=== PATIENT | male | born 1965 | race Caucasian/White ===

== ENCOUNTER 2022-05-31 06:17 | Day surgery (SDC) | payer BC ==
[2022-05-30 14:14] VITALS: BMI 32.3
[2022-05-31] MEDS ORDERED: EPINEPHrine 1 MG/ML AMP ONE (06:40)
[2022-05-31] MEDS ORDERED: Lidocaine 1% (PF) 30 ML VIAL ONE (06:40)
[2022-05-31] MEDS ORDERED: Bacitracin Zinc Ointment 30 gm TUBE ONE (06:40)
[2022-05-31] MEDS ORDERED: fentaNYL PF 100 MCG/2 ML SYRINGE ONE (06:49)
[2022-05-31] MEDS ORDERED: ePHEDrine 50 MG/ML VIAL ONE (07:27)
[2022-05-31] MEDS ORDERED: Dexamethasone 20 MG/5 ML VIAL ONE (07:27)
[2022-05-31] MEDS ORDERED: Lidocaine 1% PF 5 ML VIAL ONE (07:27)
[2022-05-31] MEDS ORDERED: Rocuronium Bromide 10 MG/ML (10ML VIAL) ONE (07:27)
[2022-05-31] MEDS ORDERED: Ondansetron PF 4 MG/2 ML Vial ONE (07:27)
[2022-05-31] MEDS ORDERED: Esmolol 100 MG/10 ML VIAL ONE (07:27)
[2022-05-31] MEDS ORDERED: Glycopyrrolate 0.2 MG/ML 5 ML SYRINGE ONE (07:27)
[2022-05-31] MEDS ORDERED: PHENYLEPHRINE-NS 100 MCG/ML 10 ML SYRINGE ONE (07:27)
[2022-05-31] MEDS ORDERED: PROPOFOL 200 MG/20 ML VIAL ONE (07:27)
[2022-05-31] MEDS ORDERED: NEOSTIGMINE 3 MG/3 ML SYR 3 MG/3 ML SYRINGE ONE (07:27)
[2022-05-31] MEDS ORDERED: MINERAL OIL/WHITE PETROLATUM 3.5 GM TUBE ONE (07:40)
[2022-05-31] MEDS ORDERED: Phenylephrine 10 MG/ML VIAL ONE (08:17)
[2022-05-31] MEDS ORDERED: HYDROcodone/Acetaminophen 5/325 mg Tablet ONE (12:21)
== END 2022-05-31 12:52 | disposition home or self-care (01) ==
LOC: SDC 06:17
PROVIDERS: ATTEND Student in an Organized Health Care Education/Training Program
PROC: 0HX1XZZ Transfer Face Skin, External Approach (ICD-10-PCS; principal; 2022-05-31)
PROC: 0HB1XZZ Excision of Face Skin, External Approach (ICD-10-PCS; principal; 2022-05-31)
DX: C44.311 Basal cell carcinoma of skin of nose (principal); C44.321 Squamous cell carcinoma of skin of nose; J34.2 Deviated nasal septum; I10 Essential (primary) hypertension; E66.9 Obesity, unspecified; Z68.32 Body mass index [BMI] 32.0-32.9, adult; Z79.899 Other long term (current) drug therapy
CPT/HCPCS: 88305; 88331; 88332; J0171; J1100; J2001; J2370; J2405; J2704; J3490